=== PATIENT | female | born 1970 | race African-American/Black ===

== ENCOUNTER 2019-08-08 23:50 | Emergency (ER) | payer BC | END 2019-08-09 00:16 | disposition home or self-care (01) | LOC: BURERS 23:50 | DX: F10.129 Alcohol abuse with intoxication, unspecified (principal) | CPT/HCPCS: 99284 ==

== ENCOUNTER 2023-08-02 12:12 | Emergency (ER) | payer BC | END 2023-08-02 13:10 | disposition home or self-care (01) | LOC: BURERS 12:12 | DX: L30.9 Dermatitis, unspecified (principal); F17.210 Nicotine dependence, cigarettes, uncomplicated | CPT/HCPCS: 99282 ==